=== PATIENT | male | born 1975 | race Caucasian/White ===

== ENCOUNTER 2021-05-30 20:43 | Emergency (ER) | payer SELFPAY ==
[2021-05-30 21:13] VITALS: BP 138/91; PULSE 109; TEMP 98.1; BMI 27.3
[2021-05-30] MEDS ORDERED: KETOROLAC TROMETHAMINE 30 MG/1 ML VIAL ONE (22:44)
[2021-05-30] MEDS ORDERED: CEPHALEXIN MONOHYDRATE 500 MG CAPSULE (UD) ONE (22:44)
[2021-05-30] MEDS ORDERED: KETOROLAC TROMETHAMINE 30 MG/1 ML VIAL IM ONE (22:44)
[2021-05-30] MEDS ORDERED: CEPHALEXIN MONOHYDRATE 500 MG CAPSULE (UD) PO ONE (22:44)
== END 2021-05-30 23:36 | disposition home or self-care (01) ==
LOC: JERFT 20:43
PROC: 3E023GC Introduction of Other Therapeutic Substance into Muscle, Percutaneous Approach (ICD-10-PCS; principal; 2021-05-30)
DX: M25.561 Pain in right knee (principal)
CPT/HCPCS: 73562-TC-RT-FY; 99284-25

== ENCOUNTER 2021-06-03 11:41 | Emergency (ER) | payer OTHER ==
[2021-06-03 11:48] VITALS: BP 130/84; PULSE 82; TEMP 98.6; BMI 31.6
== END 2021-06-03 13:07 | disposition home or self-care (01) ==
LOC: JER 11:41
DX: M25.561 Pain in right knee (principal)
CPT/HCPCS: 99281-25